=== PATIENT | female | born 1930 | race Caucasian/White ===

== ENCOUNTER 2017-12-16 17:43 | Observation (INO) | payer MEDICARE, OTHER ==
[~2017-12-16] VITALS: Ht 152.4 cm; Wt 56.9 kg
[~2017-12-16 17:43] MED LIST: ASPIRIN81 MG; VITAMIN E200 UNI5 PO; Z.0.CELEBREX50 MG PO; Z.0.CRESTOR5 MG PO; Z.0.LISINOPRIL10 MG PO; Z.0.TOPROL XL25 MG PO
[2017-12-16] MEDS ORDERED: ONDANSETRON HCL INJ 2 MG/ML VIAL IV ONE (19:15)
[2017-12-16] MEDS ORDERED: SODIUM CHLORIDE 0.9% 500ML 500 ML IV STA (19:15)
[2017-12-16] MEDS ORDERED: FAMOTIDINE 20 MG/2 ML VIAL IV ONE (19:15)
[2017-12-16] MEDS ORDERED: MORPHINE SULFATE INJ 4 MG/ML INJ IV STA (19:15)
[2017-12-16] MEDS ORDERED: CEFTRIAXONE SOD 1 GM VIAL IV ONE (19:15)
[2017-12-16] MEDS ORDERED: KETOROLAC TROMETHAMINE 30 MG/ML VIAL IV NR (19:45)
[2017-12-16] MEDS ORDERED: KETOROLAC TROMETHAMINE 30 MG/ML VIAL ONE (19:51)
[2017-12-16 19:53] LABS: BILIRUBIN,URINE NEGATIVE (NEGATIVE); CLARITY,URINE SL CLOUDY (CLEAR); COLOR,URINE YELLOW (YELLOW); KETONES,URINE NEGATIVE (NEGATIVE); LEUKOCYTE ESTERASE ,URINE TRACE (NEGATIVE); NITRITE,URINE NEGATIVE (NEGATIVE); PROTEIN,URINE DIPSTICK NEGATIVE (NEGATIVE); URINE UROBILINOGEN 0.2 mg/dL (0.2 - 1)
[2017-12-16 20:02] LABS: AMORPHOUS SEDIMENT,URINE MODERATE (FEW); BACTERIA,URINE MODERATE /HPF; RBC,URINE 0-5 /HPF (0-5); WBC,URINE (MAN) 0-5 /HPF (0-5)
[2017-12-16 20:08] LABS: BASOPHILS # (AUTO) 0.1 (0.0-0.1); BASOPHILS % 0.4 % (0.0-1.0); EOSINOPHILS # (AUTO) 0.3 (0.0-0.4); EOSINOPHILS % 2.1 % (0.0-6.0); HEMATOCRIT 42.2 % (34.2-44.1); HEMOGLOBIN 14.3 g/dL (12.0-16.0); LYMPHOCYTES # (AUTO) 2.4 (1.0-3.2); LYMPHOCYTES % 19.6 % (18.0-39.1); MEAN CORPUSCULAR HEMOGLOBIN 30.8 pg (28-32); MEAN CORPUSCULAR HGB CONC 33.9 g/dL (31-35); MEAN CORPUSCULAR VOLUME 90.9 fL (81-99); MONOCYTES # (AUTO) 0.9 (0.2-0.8); MONOCYTES % 7.1 % (4.4-11.3); NEUTROPHILS # (AUTO) 8.5 (2.1-6.9); NEUTROPHILS % 70.5 % (38.7-80.0); PLATELET COUNT 171 x10e3/uL (140-360); RED BLOOD COUNT 4.64 x10e6/uL (3.6-5.1); RED CELL DISTRIBUTION WIDTH 13.2 % (11.7-14.4)
[2017-12-16 20:28] LABS: ALBUMIN 3.7 g/dL (3.5-5.0); ALBUMIN/GLOBULIN RATIO 1.3 (0.8-2.0); CALCIUM 9.3 mg/dL (8.4-10.2); CREATININE, SERUM 0.99 mg/dL (0.57-1.11)
--- NOTE | 2017-12-16 20:29 | Diagnostic Imaging Report ---
EXAM: CT Abdomen and Pelvis WITHOUT contrast INDICATION: Abdominal pain. Epigastric pain. Neck pain. History of kidney stones. COMPARISON: 11/25/2012 TECHNIQUE: Abdomen and pelvis were scanned utilizing a multidetector helical scanner from the lung base to the pubic symphysis without administration of IV contrast. Absence of intravenous contrast decreases sensitivity for detection of focal lesions and vascular pathology. Coronal and sagittal reformations were obtained. Routine protocol was performed. IV CONTRAST: None. ORAL CONTRAST: None RADIATION DOSE: Total DLP: 226.81 mGy*cm Estimated effective dose: (DLP x 0.015 x size factor) mSv COMPLICATIONS: None FINDINGS: LINES and TUBES: None. LOWER THORAX: Nonspecific 3 mm nodules in the posterior inferior left lower lobe best seen on series 3 image 14. HEPATOBILIARY: There is intrahepatic and extrahepatic biliary ductal dilatation. Nonspecific hypodensity in the left lobe of the liver. GALLBLADDER: Gallbladder is absent. SPLEEN: No splenomegaly. PANCREAS: No focal masses or ductal dilatation. ADRENALS: No adrenal nodules KIDNEYS/URETERS/BLADDER: No hydronephrosis. No cystic or solid mass lesions. Multiple nonobstructive 1-2 mm stones in the right kidney and two similar stones in the left kidney. Focal 7-mm hyperdense lesion in the lower pole of the left kidney, likely represents a hemorrhagic cyst. No ureteral or bladder stone. GI TRACT: There is diverticulosis without evidence of diverticulitis. Numerous nonspecific prominent fluid-filled loops of small bowel are seen in the central abdomen. Appendix is normal. 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 LYMPH NODES: No lymphadenopathy. VESSELS: Status post aortobifemoral arterial graft surgery. PERITONEUM / RETROPERITONEUM: No free air or fluid. BONES: Unremarkable.There are bone islands in the pelvic bones. There is osteopenia. There is dextroscoliosis in the lumbar spine. SOFT TISSUES: Left breast calcifications. There is laxity in the anterior abdominal wall with protrusion of the left lobe of the liver into the region of the subcutaneous anterior abdomen. There is an adjacent heterotopic ossification. 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 There are multiple ventral number herniations containing only fat, unchanged. IMPRESSION: 1. Multiple bilateral 1-2 mm nonobstructive renal stones. 2. Unchanged intrahepatic and extrahepatic biliary ductal dilatation which again may be related to postcholecystectomy reservoir effect and/or choledochal cyst. 3. 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 4. Multiple ventral abdominal herniations containing only fat. 5. Numerous nonspecific prominent fluid-filled loops of small bowel in the central abdomen Signed by: Dr. Harmeet Fletcher M.D. on 12/16/2017 8:26 PM
[2017-12-16] MEDS ORDERED: ZOLPIDEM TARTRATE 5 MG TAB PO PRN (21:15)
[2017-12-16] MEDS ORDERED: DIPHENHYDRAMINE HCL INJ 50 MG/ML VIAL IV PRN (21:15)
[2017-12-16] MEDS ORDERED: ACETAMINOPHEN 325 MG TAB PO PRN (21:15)
[2017-12-16] MEDS ORDERED: LACTULOSE SYRUP 20 GM/30 ML UDC PO PRN (21:15)
[2017-12-16] MEDS ORDERED: ONDANSETRON HCL INJ 2 MG/ML VIAL IV PRN (21:15)
[2017-12-16] MEDS ORDERED: IBUPROFEN 200 MG TAB PO PRN (21:15)
[2017-12-16] MEDS ORDERED: PROMETHAZINE HCL (IM) 25 MG/ML VIAL IV PRN (21:15)
[2017-12-16] MEDS ORDERED: ENALAPRILAT IV INJ 1.25 MG/ML VIAL IV PRN (21:15)
[2017-12-16] MEDS ORDERED: SODIUM CHLORIDE 0.9% 1000ML 1,000 ML IV ONE (21:15)
[2017-12-16] MEDS ORDERED: MORPHINE SULFATE 2 MG/ML SYR IV PRN (21:15)
[2017-12-16 23:40] VITALS: BP 140/54
[2017-12-16 23:51] VITALS: BP 140/54
[2017-12-17 05:21] VITALS: BP 140/64
[2017-12-17 05:33] LABS: BASOPHILS % 0.6 % (0.0-1.0); EOSINOPHILS # (AUTO) 0.3 (0.0-0.4); HEMATOCRIT 40.2 % (34.2-44.1); HEMOGLOBIN 13.1 g/dL (12.0-16.0); LYMPHOCYTES # (AUTO) 2.1 (1.0-3.2); LYMPHOCYTES % 31.2 % (18.0-39.1); MEAN CORPUSCULAR HEMOGLOBIN 30.5 pg (28-32); MEAN CORPUSCULAR HGB CONC 32.6 g/dL (31-35); MEAN CORPUSCULAR VOLUME 93.7 fL (81-99); MONOCYTES # (AUTO) 0.6 (0.2-0.8); MONOCYTES % 8.9 % (4.4-11.3); NEUTROPHILS # (AUTO) 3.7 (2.1-6.9); NEUTROPHILS % 55.2 % (38.7-80.0); PLATELET COUNT 159 x10e3/uL (140-360); RED BLOOD COUNT 4.29 x10e6/uL (3.6-5.1); RED CELL DISTRIBUTION WIDTH 13.3 % (11.7-14.4)
[2017-12-17 06:02] LABS: ANION GAP 10.7 mmol/L (8-16); CALCIUM 8.8 mg/dL (8.4-10.2); CREATININE, SERUM 0.89 mg/dL (0.57-1.11); POTASSIUM 4.7 mmol/L (3.5-5.1)
[2017-12-17] MEDS ORDERED: IBUPROFEN 400 MG TAB PO PRN (07:00)
[2017-12-17 07:36] VITALS: BP 136/62
[2017-12-17] MEDS: LISINOPRIL 10 MG TAB PO SCH ×2 (09:00→16:37)
[2017-12-17] MEDS: METOPROLOL SUCCINATE 25 MG TAB XL PO SCH (09:00)
[2017-12-17] MEDS: ASPIRIN 81 MG CHEW TAB PO SCH (09:00)
[2017-12-17] MEDS: FAMOTIDINE 20 MG/2 ML VIAL IV SCH ×2 (09:46→16:37)
[2017-12-17 10:12] VITALS: BP 136/62
[2017-12-17 11:20] VITALS: BP 135/76
[2017-12-17] MEDS: SODIUM CHLORIDE 0.9% 1000ML 1,000 ML IV SCH ×2 (12:39→22:24)
[2017-12-17 15:12] VITALS: BP 115/56
[2017-12-17 19:45] VITALS: BP 143/63
[2017-12-18] VITALS (7 sets, daily range): BP systolic 118–143; BP diastolic 55–69
[2017-12-18] MEDS: SODIUM CHLORIDE 0.9% 1000ML 1,000 ML IV SCH (08:51)
[2017-12-18] MEDS: METOPROLOL SUCCINATE 25 MG TAB XL PO SCH (09:00)
[2017-12-18] MEDS: ASPIRIN 81 MG CHEW TAB PO SCH (09:16)
[2017-12-18] MEDS: FAMOTIDINE 20 MG/2 ML VIAL IV SCH (09:16)
[2017-12-18] MEDS: LISINOPRIL 10 MG TAB PO SCH (09:18)
== END 2017-12-18 11:24 | disposition home or self-care (01) ==
LOC: ER 17:43 → ERHOLD 21:12 → IMCU 22:27
PROVIDERS: ADMIT Internal Medicine; ATTEND Internal Medicine
DX: N20.2 Calculus of kidney with calculus of ureter (principal); R10.32 Left lower quadrant pain; Z87.442 Personal history of urinary calculi; I10 Essential (primary) hypertension; Z88.1 Allergy status to other antibiotic agents; Z88.0 Allergy status to penicillin; N39.46 Mixed incontinence; R11.2 Nausea with vomiting, unspecified
CPT/HCPCS: 36415 ×2; 74176; 80048; 80053; 81001; 85025 ×2; 87086; 93005; 96374; 99284; G0378 ×3; J0696; J1885; J2270; J2405; J2550; J7030 ×3; J7040